=== PATIENT | female | born 1995 | race African-American/Black ===

== ENCOUNTER 2016-12-10 07:54 | Inpatient (IN) | payer MEDICAID ==
[~2016-12-10] VITALS: Ht 167.6 cm; Wt 125.6 kg
[2016-12-10] VITALS (19 sets, daily range): BP systolic 107–154; BP diastolic 61–97
[~2016-12-10 07:54] MED LIST: NAPROSYN375 MG PO; NO; PENICILLIN V P250 MG PO
[2016-12-10 08:26] LABS: URINE BILIRUBIN - DIPSTICK NEGATIVE (NEGATIVE); URINE BLOOD DIPSTICK NEGATIVE (NEGATIVE); URINE CLARITY CLEAR; URINE COLOR YELLOW; URINE GLUCOSE - DIPSTICK NEGATIVE (NEGATIVE); URINE KETONE NEGATIVE (NEGATIVE); URINE LEUK ESTERASE TRACE (NEGATIVE); URINE NITRITE - DIPSTICK NEGATIVE (Negative); URINE PROTEIN - DIPSTICK NEGATIVE (NEG-TRACE); URINE SPECIFIC GRAVITY 1.025
[2016-12-10 08:27] LABS: BARBITURATES NEGATIVE (NEGATIVE); COCAINE NEGATIVE (NEGATIVE); METHADONE NEGATIVE (NEGATIVE); OXCYCODONE NEGATIVE (NEGATIVE); TETRAHYDROCANNABIONOL NEGATIVE (NEGATIVE); TRICYLIC ANTIDEPRESSANTS NEGATIVE (NEGATIVE)
[2016-12-10 09:03] LABS: HEMATOCRIT 34.2 % (37.0-47.0); HEMOGLOBIN 11.5 g/dl (12.0-16.0); IMMATURE GRANULOCYTES 0.8 % (0.0-1.0); MEAN CELL VOLUME 81.4 fL CALC (80.0-100.0); MEAN CORPUSCULAR HGB 27.4 pG CALC (26.0-32.0); MEAN CORPUSCULAR HGB CONC 33.6 g/L CALC (32.0-36.0); NEUT# 4.37 thou/uL (2.00-7.15); RED BLOOD COUNT 4.2 mill/uL (4.20-5.60); RED CELL DISTRI WIDTH 14.3 % (11.5-15.5)
[2016-12-10 09:17] LABS: ALBUMIN 3.6 g/dL (3.2-5.0); ALKALINE PHOSPHATASE 198 u/l (38-126); ANION GAP 12 (6-22 (CALC)); BILIRUBIN, TOTAL 0.3 mg/dL (0.0-1.4); BUN 6 mg/dL (7-17); BUN/CREATININE RATIO 10 (12-20 (CALC)); CALCIUM 9.4 mg/dL (8.4-10.2); CARBON DIOXIDE 25 mmol/l (22-30); CHLORIDE 105 mmol/l (95-108); CREATININE 0.6 mg/dL (0.5-1.0); GFR > 60 ML/MIN (>=60 (CALC)); GFR FOR AFR.AMER. > 60 ML/MIN (>=60 (CALC)); GLUCOSE 95 mg/dL (65-105); POTASSIUM 3.7 mmol/l (3.5-5.1); SGOT/AST 13 u/l (14-36); SGPT/ALT 18 u/l (9-52); SODIUM 138 mmol/l (137-146); TOTAL PROTEIN 6.6 g/dL (6.3-8.2)
[2016-12-11 05:35] VITALS: BP 106/58
[2016-12-11 05:50] LABS: HEMATOCRIT 30.5 % (37.0-47.0); HEMOGLOBIN 10.2 g/dl (12.0-16.0); IMMATURE GRANULOCYTES 0.6 % (0.0-1.0); MEAN CELL VOLUME 82.2 fL CALC (80.0-100.0); MEAN CORPUSCULAR HGB 27.5 pG CALC (26.0-32.0); MEAN CORPUSCULAR HGB CONC 33.4 g/L CALC (32.0-36.0); NEUT# 6.45 thou/uL (2.00-7.15); RED BLOOD COUNT 3.71 mill/uL (4.20-5.60); RED CELL DISTRI WIDTH 14.2 % (11.5-15.5)
[2016-12-11 09:05] VITALS: BP 115/67
[2016-12-11 17:34] VITALS: BP 125/64
[2016-12-11 19:15] VITALS: BP 124/77
[2016-12-12] MEDS ORDERED: IBUPROFEN600 MG PO (09:26)
== END 2016-12-12 11:30 | disposition home or self-care (01) | DRG 775 ==
LOC: OB 07:54 → OBOP 07:54 → OB 13:00
PROVIDERS: ADMIT Obstetrics & Gynecology; ATTEND Obstetrics & Gynecology
PROC: 10E0XZZ Delivery of Products of Conception, External Approach (ICD-10-PCS; principal; 2016-12-10)
PROC: 3E033VJ Introduction of Other Hormone into Peripheral Vein, Percutaneous Approach (ICD-10-PCS; 2016-12-10)
PROC: 10907ZC Drainage of Amniotic Fluid, Therapeutic from Products of Conception, Via Natural or Artificial Opening (ICD-10-PCS; 2016-12-10)
DX: O48.0 Post-term pregnancy (principal); Z68.41 Body mass index [BMI] 40.0-44.9, adult; O99.214 Obesity complicating childbirth; E66.9 Obesity, unspecified; Z3A.41 41 weeks gestation of pregnancy; Z37.9 Outcome of delivery, unspecified

== ENCOUNTER 2018-12-11 21:51 | Emergency (ER) | payer SELFPAY ==
[~2018-12-11] VITALS: Ht 175.3 cm; Wt 160.0 kg
[~2018-12-11 21:51] MED LIST changes: +IBUPROFEN600 MG PO
[2018-12-11 22:42] LABS: URINE BILIRUBIN - DIPSTICK NEGATIVE (NEGATIVE); URINE BLOOD DIPSTICK NEGATIVE (NEGATIVE); URINE COLOR YELLOW; URINE GLUCOSE - DIPSTICK NEGATIVE (NEGATIVE); URINE KETONE TRACE mg/dL (NEGATIVE); URINE NITRITE - DIPSTICK NEGATIVE (Negative); URINE PH 5.5 (4.5-8.0); URINE PROTEIN - DIPSTICK NEGATIVE (NEG-TRACE); URINE SPECIFIC GRAVITY >=1.030
[2018-12-11 22:45] LABS: URINE LEUK ESTERASE SMALL (NEGATIVE)
[2018-12-11 23:14] LABS: URINE SQUAMOUS EPITHELIAL CELL FEW EPI/hpf (0-FEW)
[2018-12-11] MEDS ORDERED: BACTRIM DS1 TAB PO (23:17)
[2018-12-11 23:28] VITALS: BP 150/80
== END 2018-12-11 23:28 | disposition home or self-care (01) | DRG 690 ==
LOC: ED 21:51
PROVIDERS: Family Medicine
DX: N30.01 Acute cystitis with hematuria (principal); R30.0 Dysuria

== ENCOUNTER 2019-03-06 16:10 | Emergency (ER) | payer BC ==
[~2019-03-06] VITALS: Ht 175.3 cm; Wt 155.0 kg
[~2019-03-06 16:10] MED LIST changes: +BACTRIM DS1 TAB PO
[2019-03-06 17:40] VITALS: BP 143/82
== END 2019-03-06 17:40 | disposition home or self-care (01) | DRG 556 ==
LOC: ED 16:10
DX: M25.531 Pain in right wrist (principal)

== ENCOUNTER 2019-05-04 20:38 | Emergency (ER) | payer BC ==
[~2019-05-04] VITALS: Ht 175.3 cm; Wt 100.0 kg
[2019-05-04 22:14] LABS: URINE BILIRUBIN - DIPSTICK NEGATIVE (NEGATIVE); URINE BLOOD DIPSTICK SMALL (NEGATIVE); URINE COLOR YELLOW; URINE GLUCOSE - DIPSTICK NEGATIVE (NEGATIVE); URINE KETONE NEGATIVE (NEGATIVE); URINE NITRITE - DIPSTICK NEGATIVE (Negative); URINE PROTEIN - DIPSTICK TRACE mg/dL (NEG-TRACE); URINE SPECIFIC GRAVITY >=1.030; URINE UROBILINOGEN - DIPSTICK 0.2 E.U./dL (0.2)
[2019-05-04 22:15] LABS: HCG SERUM/URINE (NEG/POS) NEGATIVE (NEGATIVE)
[2019-05-04 22:17] LABS: URINE LEUK ESTERASE MODERATE (NEGATIVE)
[2019-05-04 22:28] LABS: URINE WBC 20-50 WBC/hpf (0-5)
[2019-05-04 22:29] LABS: URINE SQUAMOUS EPITHELIAL CELL FEW EPI/hpf (0-FEW)
== END 2019-05-04 22:55 | disposition left against medical advice (07) | DRG 761 ==
LOC: ED 20:38
PROVIDERS: Emergency Medicine
DX: N89.8 Other specified noninflammatory disorders of vagina (principal); Z91.19 Patient's noncompliance with other medical treatment and regimen

== ENCOUNTER 2019-08-29 | Emergency (ER) | payer SELFPAY ==
[2019-08-29] MEDS ORDERED: BACTROBAN TOP (18:15)
== END 2019-08-29 18:28 | disposition home or self-care (01) | DRG 605 ==
DX: S00.35XA Superficial foreign body of nose, initial encounter (principal); X58.XXXA Exposure to other specified factors, initial encounter

== ENCOUNTER 2020-07-05 13:55 | Emergency (ER) | payer OTHER ==
[~2020-07-05] VITALS: Ht 175.3 cm; Wt 149.0 kg
[~2020-07-05 13:55] MED LIST changes: +BACTROBAN TOP
[2020-07-05 15:24] LABS: URINE BILIRUBIN - DIPSTICK NEGATIVE (NEGATIVE); URINE BLOOD DIPSTICK NEGATIVE (NEGATIVE); URINE COLOR YELLOW; URINE GLUCOSE - DIPSTICK NEGATIVE (NEGATIVE); URINE KETONE NEGATIVE (NEGATIVE); URINE NITRITE - DIPSTICK NEGATIVE (Negative); URINE PH 7.5 (4.5-8.0); URINE PROTEIN - DIPSTICK NEGATIVE (NEG-TRACE); URINE UROBILINOGEN - DIPSTICK 0.2 E.U./dL (0.2)
[2020-07-05 15:29] LABS: URINE LEUK ESTERASE SMALL (NEGATIVE)
[2020-07-05 15:31] LABS: URINE BACTERIA FEW hpf; URINE EPITHELIAL CELLS FEW EPI/hpf (0-FEW)
[2020-07-05] MEDS ORDERED: FLEXERIL5 M1 PO (17:00)
[2020-07-05 17:15] VITALS: BP 146/96
== END 2020-07-05 17:24 | disposition home or self-care (01) | DRG 103 ==
LOC: ED 13:55
DX: R51.9 Headache, unspecified (principal); M62.48 Contracture of muscle, other site; I10 Essential (primary) hypertension; Z91.19 Patient's noncompliance with other medical treatment and regimen

== ENCOUNTER 2020-08-26 14:12 | Emergency (ER) | payer OTHER ==
[~2020-08-26] VITALS: Ht 175.3 cm; Wt 148.0 kg
[~2020-08-26 14:12] MED LIST changes: +FLEXERIL5 M1 PO
[2020-08-26 14:43] LABS: IMMATURE GRANULOCYTES 0.3 % (0.0-5.0); MEAN CELL VOLUME 84.1 fL CALC (80.0-100.0); MEAN CORPUSCULAR HGB 26.5 pG CALC (26.0-32.0); MEAN CORPUSCULAR HGB CONC 31.5 g/dL CAL (32.0-36.0); NEUT# 2.74 thou/uL (2.00-7.15); RED BLOOD COUNT 4.91 mill/uL (4.20-5.60); RED CELL DISTRI WIDTH 14.2 % (11.5-15.5)
[2020-08-26 14:44] LABS: HEMATOCRIT 41.3 % (37.0-47.0)
[2020-08-26 15:03] LABS: ALBUMIN 3.9 g/dL (3.2-5.0); ANION GAP 12 (6-22 (CALC)); BUN 9 mg/dL (7-17); BUN/CREATININE RATIO 12 (12-20 (CALC)); CARBON DIOXIDE 25 mmol/l (22-30); CHLORIDE 104 mmol/l (95-108); CREATININE 0.7 mg/dL (0.5-1.0); GFR > 60 ML/MIN (>=60 (CALC)); GFR FOR AFR.AMER. > 60 ML/MIN (>=60 (CALC)); LIPASE 49 u/l (23-300); POTASSIUM 3.7 mmol/l (3.5-5.1); SGOT/AST 16 u/l (14-36); SODIUM 137 mmol/l (137-146); TOTAL PROTEIN 7.2 g/dL (6.3-8.2)
[2020-08-26 15:05] LABS: ALKALINE PHOSPHATASE 72 u/l (38-126); BILIRUBIN, TOTAL 0.5 mg/dL (0.0-1.4)
[2020-08-26 16:00] LABS: URINE BILIRUBIN - DIPSTICK NEGATIVE (NEGATIVE); URINE BLOOD DIPSTICK NEGATIVE (NEGATIVE); URINE COLOR YELLOW; URINE GLUCOSE - DIPSTICK NEGATIVE (NEGATIVE); URINE KETONE NEGATIVE (NEGATIVE); URINE LEUK ESTERASE SMALL (NEGATIVE); URINE NITRITE - DIPSTICK NEGATIVE (Negative); URINE PH 7.5 (4.5-8.0); URINE PROTEIN - DIPSTICK NEGATIVE (NEG-TRACE); URINE UROBILINOGEN - DIPSTICK 0.2 E.U./dL (0.2)
[2020-08-26 16:09] LABS: URINE RBC 0-2 RBC/hpf (0-5)
[2020-08-26 16:10] LABS: URINE SQUAMOUS EPITHELIAL CELL FEW EPI/hpf (0-FEW)
[2020-08-26 16:50] VITALS: BP 138/86
== END 2020-08-26 16:50 | disposition home or self-care (01) | DRG 313 ==
LOC: ED 14:12
DX: R07.89 Other chest pain (principal); M79.672 Pain in left foot; M79.671 Pain in right foot; I10 Essential (primary) hypertension

== ENCOUNTER 2021-10-14 17:56 | Emergency (ER) | payer SELFPAY ==
[~2021-10-14] VITALS: Ht 175.3 cm; Wt 150.0 kg
[2021-10-14 18:03] VITALS: BP 165/111
[2021-10-14 18:06] VITALS: BP 165/111
[2021-10-14] MEDS ORDERED: HYDROCO/APAP1 TA9 PO (19:13)
[2021-10-14] MEDS ORDERED: DOXYCYCLINE100 MG PO (19:13)
== END 2021-10-14 19:49 | disposition home or self-care (01) | DRG 603 ==
LOC: ED 17:56
PROC: 0H9BXZZ Drainage of Right Upper Arm Skin, External Approach (ICD-10-PCS; principal; 2021-10-14)
DX: L02.411 Cutaneous abscess of right axilla (principal); I10 Essential (primary) hypertension

== ENCOUNTER 2022-08-26 11:42 | Emergency (ER) | payer BC, MEDICAID ==
[~2022-08-26] VITALS: Ht 175.3 cm; Wt 142.0 kg
[~2022-08-26 11:42] MED LIST changes: +DOXYCYCLINE100 MG PO; +HYDROCO/APAP1 TA9 PO
[2022-08-26 11:54] VITALS: BP 116/85
[2022-08-26 12:33] LABS: URINE BLOOD DIPSTICK TRACE-INTACT (NEGATIVE); URINE COLOR YELLOW; URINE GLUCOSE - DIPSTICK NEGATIVE (NEGATIVE); URINE KETONE NEGATIVE (NEGATIVE); URINE PH 6.5 (4.5-8.0); URINE PROTEIN - DIPSTICK 30 mg/dL (NEG-TRACE)
[2022-08-26 12:38] LABS: URINE BILIRUBIN - DIPSTICK SMALL (NEGATIVE); URINE LEUK ESTERASE MODERATE (NEGATIVE); URINE NITRITE - DIPSTICK NEGATIVE (Negative)
[2022-08-26 12:40] LABS: URINE BACTERIA MODERATE hpf; URINE RBC 0-2 RBC/hpf (0-5); URINE SQUAMOUS EPITHELIAL CELL FEW EPI/hpf (0-FEW); URINE WBC 50-100 WBC/hpf (0-5)
[2022-08-26] MEDS ORDERED: KEFLEX500 MG PO (13:20)
[2022-08-26] MEDS ORDERED: PHENAZOPYRIDIN100 M1 PO (13:20)
[2022-08-26] MEDS ORDERED: DIFLUCAN150 MG PO (13:20)
[2022-08-26 13:51] VITALS: BP 116/85
== END 2022-08-26 13:52 | disposition home or self-care (01) | DRG 690 ==
LOC: ED 11:42
PROVIDERS: Nurse Practitioner
DX: N39.0 Urinary tract infection, site not specified (principal); I10 Essential (primary) hypertension